=== PATIENT | female | born 2000 | race Caucasian/White ===

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

== ENCOUNTER 2022-01-25 09:26 | Outpatient (CLI) | payer BC, SELFPAY ==
[2022-01-25 09:40] LABS: Appearance Urine Clear (Clear); Bilirubin Urine Negative (Negative); Blood Urine Negative (Negative); Glucose Urine UA Negative (Negative); Ketones Urine Negative (Negative); Leukocyte Esterase Ur Negative LEU/UL (Negative); Nitrate Urine Negative (Negative); Protein Urine Negative (Negative); Specific Grav Ur <= 1.005 (1.010-1.020); Urobilinogen Urine 0.2 mg/dL (0.2-1.0)
[2022-01-25 09:54] LABS: Add Urine Microscopic? NO; Color Urine Light Yellow (Yellow)
== END 2022-01-25 09:27 | disposition home or self-care (01) ==
LOC: CHSLAB 09:29
PROVIDERS: PCP Nurse Practitioner Family; Visit Provider Nurse Practitioner Family
DX: R30.0 Dysuria (principal)
CPT/HCPCS: 81003

== ENCOUNTER 2022-02-03 17:27 | Outpatient (NON) | payer BC, SELFPAY ==
[2022-02-03 17:45] LABS: Appearance Urine Clear (Clear); Bilirubin Urine Negative (Negative); Blood Urine Negative (Negative); Glucose Urine UA Negative (Negative); Ketones Urine Negative (Negative); Leukocyte Esterase Ur 2+ LEU/UL (Negative); Nitrate Urine Negative (Negative); Protein Urine Negative (Negative); Specific Grav Ur <= 1.005 (1.010-1.020); Urobilinogen Urine 0.2 mg/dL (0.2-1.0)
[2022-02-03 17:54] LABS: Add Urine Microscopic? YES; Color Urine Yellow (Yellow)
[2022-02-03 17:55] LABS: Bacteria Urine Trace /hpf; RBC Urine 0-2 /hpf (0-2); Transitional Epi Cells Urine Few /hpf; WBC Urine 0-3 /hpf (0-3)
== END 2022-02-03 17:28 | disposition home or self-care (01) ==
LOC: CHSLAB 17:32
PROVIDERS: PCP Nurse Practitioner Family; Visit Provider Nurse Practitioner Family
DX: N89.8 Other specified noninflammatory disorders of vagina (principal); R39.9 Unspecified symptoms and signs involving the genitourinary system
CPT/HCPCS: 81001; 87086; 87491; 87591; 87661

== ENCOUNTER 2022-06-30 07:01 | Emergency (ER) | payer BC, SELFPAY ==
--- NOTE | ~2022-06-30 | XR_ITS ---
EXAMINATION: XR foot RT min 3V DATE: 06/30/2022 08:00 INDICATION: Right foot pain and swelling. TECHNIQUE: 4 views of right foot were obtained. COMPARISON: None. FINDINGS: Bone alignment is normal. No fracture. Joint spaces are well maintained. IMPRESSION: 1. No fracture. Reviewed, dictated and finalized at location A. IMPRESSION: 1. No fracture.
[2022-06-30 07:06] VITALS: BP 132/82; PULSE 94; RESP 18; TEMP 37; O2SAT 100
--- NOTE | 2022-06-30 07:07 | ED.LOWEXIN ---
HPI - Extremity Injury (Lower) General Chief Complaint: Extremity Injury, Lower Stated Complaint: Right Foot Injury(Horse) Time Seen by Provider: 06/30/22 07:03 Source: patient Mode of arrival: wheelchair Limitations: no limitations History of Present Illness HPI Narrative: Year old with no significant past medical history on control pills presents to the ER after her horse stepped on her right distal foot last night. The patient presents with foot pain and is unable to bear weight. She has contusion at the base of the middle 3 toes. No no other injuries. complaint: foot injury Onset (ago): day(s) ( Happened last night) Place: home Severity: moderate Relieving factors: immobilization Exacerbating factors: movement Context: direct blow Other symptoms: none Treatments prior to arrival: cold therapy Related Data Home Medications Medication Instructions Recorded Confirmed cholecalciferol (vitamin D3) 50 2,000 unit PO DAILY 06/30/22 06/30/22 mcg (2,000 unit) capsule norethindrone 1 mg-ethinyl 1 tablet PO DAILY 06/30/22 06/30/22 estradiol 20 mcg (21)-iron 75 mg (7) tablet (04/16 (28)) Allergies Allergy/AdvReac Type Severity Reaction Status Date / Time No Known Allergies Allergy Verified 06/30/22 07:32 Review of Systems Review of Systems: All systems reviewed & are unremarkable except as noted in HPI and below PMFSH Past Medical History Medical History (Updated 06/30/22 @ 08:05 by Geovani Brooke MD) Overweight Surgical History Surgical History No significant past surgical history Social History Social History Smoking status: Never smoker Second hand tobacco smoke exposure: No Alcohol intake: never Substance use: never Substance use type: does not use Lack of Transportation: No Lack of Food: Never True Current Housing: I Have Housing Concerned About Future Housing: No Difficulty Paying Gas/Electric Bills: No Difficulty Paying for Meds: No Currently Unemployed: No Education: High School Diploma/GED Difficulty w/ Childcare or Family Care: No Living arrangements: with family Occupation/Education: student Exam Const: General: healthy appearing and no acute distress Nutritional Appearance: well nourished Orientation/consciousness: patient oriented x3 Limitations: no limitations HENMT: Head: normal to inspection Ears: external ears normal Face/Nose/Sinus: Normal external nose present Face and sinus: normal facial exam Mouth: Yes Normal oral and palatal mucosa present Throat: posterior oropharynx normal Eyes: Conjunctivae: conjunctivae normal Pupils: Equal, round and reactive pupils present EOM: EOMs intact bilaterally Direct Ophthalmoscopy: no photophobia Neck: Neck: normal visual inspection, no lymphadenopathy and no meningeal signs Chest: Chest palpation & inspection: normal inspection of the chest Resp: Effort & Inspection: normal respiratory effort Auscultation: clear to auscultation bilaterally Cardio: Rate: regular rate Rhythm: regular rhythm GI: GI Palp: Yes Soft to palpation Auscultation: normal bowel sounds : General: Yes no CVA tenderness Skin: Other: contusion of the distal foot and base of the middle 3 toes Neuro: General: patient oriented x3, moves all extremities, no meningeal signs, no focal motor deficits and CN's II-XI intact bilaterally Cranial nerves: Yes Nystagmus not present Speech: normal speech Extrem: General: normal to inspection, no clubbing, cyanosis or edema and no pedal edema Other: tenderness over the distal 2nd 3rd 4th metatarsal and contusion of the base of the 2nd 3rd 4th toes Psych: Mental Status: mental status grossly normal Affect: normal affect Attitude: cooperative Course Course Emergency Course: right foot pain/ Contusion at the base of 2/3/4 toes. Patient
[2022-06-30 08:35] VITALS: BP 118/79; PULSE 80; RESP 18; TEMP 36.9; O2SAT 100
--- NOTE | 2022-06-30 08:46 | PC.NURSE ---
On 06/30/22, the student, [JOHN ABEL ], provided care and completed [facility] documentation on this patient. I have reviewed the student's documentation and agree with the findings.
== END 2022-06-30 08:48 | disposition home or self-care (01) ==
PROVIDERS: Emergency Provider Internal Medicine Critical Care Medicine; PCP Nurse Practitioner Family
DX: S90.31XA Contusion of right foot, initial encounter (principal); W55.12XA Struck by horse, initial encounter
CPT/HCPCS: 73630; 99283; 99284